=== PATIENT | female | born 1965 | race Caucasian/White ===

== ENCOUNTER → 2017-05-02 | Outpatient (CLI) | payer OTHER ==
[~2017-05-02] MED LIST: FLUO20CA19 PO; LEVO112T2 PO; LISI40TA PO; [UNRECOGNIZED DRUG - OTHER] PO
[2017-05-02 11:21] LABS: HEMATOCRIT 44.1 % (34.6-47.8); HEMOGLOBIN 14.9 g/dL (11.7-16.4); WHITE BLOOD COUNT 8.3 x10^3/uL (3.4-10)
[2017-05-02 12:00] LABS: BLOOD UREA NITROGEN 9 mg/dL (7-18)
[2017-05-02 12:27] LABS: ASPARTATE AMINO TRANSFERASE 20 U/L (15-37); FERRITIN 86.6 ng/mL (8-252); TOTAL IRON BINDING CAPACITY 324 mcg/dL (250-450); TRANSFERRIN 245 mg/dL (200-360)
== END | disposition home or self-care (01) ==
LOC: STAR 10:24
PROVIDERS: ATTEND Thoracic Surgery (Cardiothoracic Vascular Surgery)
DX: Z01.818 Encounter for other preprocedural examination (principal); R79.89 Other specified abnormal findings of blood chemistry
CPT/HCPCS: 36415; 71020; 80053; 82306; 82607; 82728; 82746; 83540; 83550; 83970; 84134; 84425; 84466; 85025; 93005